=== PATIENT | female | born 1945 | race Caucasian/White ===

== ENCOUNTER 2021-07-09 13:55 | Emergency (ER) | payer MEDICARE ==
[~2021-07-09] VITALS: Ht 162.6 cm; Wt 65.8 kg
[2021-07-09] MEDS ORDERED: POTASSIUM CHLO10 ME1 PO (14:17)
[2021-07-09] MEDS ORDERED: METOPROLOL SUCC25 MG PO (14:17)
--- NOTE | 2021-07-10 15:18 | EKG ---
[facility] [address] [facility] [place] [address] Signed Normal sinus rhythm Nonspecific ST abnormality Abnormal ECG No previous ECGs available Confirmed by STANTON COKER MD ([id number] on 07/10/2021 3:18:23 PM Electronically Signed By: STANTON COKER MD 07/10/21 1518 PATIENT NAME: GEORGES KEITA Electrocardiogram DATE OF : 43 PHYSICIAN: STANTON COKER MD REPORT #: [id number] REPORT IS CONFIDENTIAL AND NOT TO BE RELEASED WITHOUT AUTHORIZATION
== END 2021-07-09 15:31 | disposition home or self-care (01) ==
LOC: ED 13:55
DX: R07.89 Other chest pain (principal); Z79.899 Other long term (current) drug therapy
CPT/HCPCS: 36415; 71045; 80053; 83880; 84484; 85025; 93005; 93010; 99285-25